=== PATIENT | male | born 1990 | race American Indian/Alaskan Native ===

== ENCOUNTER 2020-01-17 18:09 | Emergency (ER) | payer SELFPAY ==
[2020-01-17 18:22] VITALS: BP 151/94
[2020-01-17] MEDS ORDERED: ACETAMINOPHEN 500 MG TAB PO ONE (19:34)
[2020-01-17] MEDS ORDERED: IBUPROFEN 600 MG TAB PO ONE (19:34)
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
== END 2020-01-17 21:49 | disposition home or self-care (01) ==
LOC: ED 18:09
DX: S83.92XA Sprain of unspecified site of left knee, initial encounter (principal); S83.91XA Sprain of unspecified site of right knee, initial encounter; R25.2 Cramp and spasm; G44.319 Acute post-traumatic headache, not intractable; F17.200 Nicotine dependence, unspecified, uncomplicated; Z79.899 Other long term (current) drug therapy
CPT/HCPCS: 70450; 72125